=== PATIENT | female | born 1945 | race Caucasian/White ===

== ENCOUNTER → 2016-07-30 | Outpatient (CLI) | payer OTHER ==
--- NOTE | 2016-07-30 12:26 | DX ---
Chest, PA and Lateral History: Pneumonia , J18.9 Findings: There is mild bronchial wall thickening. Lung volumes are mildly prominent. There is no inf iltrate or consolidation. Heart size and pulmonary vascularity are normal. There is no adenopathy or mass lesion. There is no pleural effusion or pneumothorax. Bones are unremarkable for age. Impression: Suspect airways disease. No pneumonia. A message was left with Darin Acosta for Heavenly Reyes MD, at 07/30/2016 12:22
== END ==
LOC: FIMAGING 10:32
PROVIDERS: ATTEND Family Medicine
DX: Z03.89 Encounter for observation for other suspected diseases and conditions ruled out (principal)